=== PATIENT | female | born 1965 | race Two or more races ===

== ENCOUNTER 2022-02-10 21:53 | Emergency (ER) | payer BC ==
[~2022-02-10] VITALS: Ht 152.4 cm; Wt 65.8 kg
[2022-02-10] MEDS ORDERED: ENALAPRIL 10 MG (22:19)
== END 2022-02-11 00:08 | disposition home or self-care (01) ==
LOC: ER 21:53
DX: S42.252A Displaced fracture of greater tuberosity of left humerus, initial encounter for closed fracture (principal); W05.1XXA Fall from non-moving nonmotorized scooter, initial encounter; Y93.89 Activity, other specified; Y92.89 Other specified places as the place of occurrence of the external cause; I10 Essential (primary) hypertension